=== PATIENT | male | born 1985 | race Caucasian/White ===

== ENCOUNTER 2021-05-31 12:50 | Outpatient (CLI) | payer OTHER ==
[~2021-05-31 12:50] MED LIST: CODEINE PO; VICOT PO
[2021-05-31 15:46] LABS: GLUCOMETER DEV NAME(LOC) POC.BV
== END 2021-05-31 17:20 | disposition home or self-care (01) ==
LOC: CSU 12:50
PROVIDERS: ATTEND Psychiatry & Neurology Psychiatry
DX: F43.21 Adjustment disorder with depressed mood (principal)
CPT/HCPCS: 90792

== ENCOUNTER 2021-07-25 18:01 | Emergency (ER) | payer OTHER ==
[~2021-07-25] VITALS: Ht 167.6 cm; Wt 95.9 kg
[2021-07-25] MEDS ORDERED: LORazepam 2 MG/ML VIAL IM ONE (20:15)
[2021-07-25] MEDS ORDERED: ACET-66 PO (20:24)
[2021-07-25] MEDS ORDERED: IBUP-2077 PO (20:24)
[2021-07-25 21:42] VITALS: BP 114/77
== END 2021-07-25 21:47 | disposition home or self-care (01) ==
LOC: EMS 18:01
DX: F14.10 Cocaine abuse, uncomplicated (principal); F41.9 Anxiety disorder, unspecified; Z87.09 Personal history of other diseases of the respiratory system
CPT/HCPCS: 96372; 99283; J2060